=== PATIENT | male | born 1995 | race Caucasian/White ===

== ENCOUNTER 2025-04-19 13:46 | Emergency (ER) | payer OTHER, SELFPAY ==
--- NOTE | ~2025-04-19 | XR_ITS ---
XR foot RT min 3V Ordering provider: Linda Lozada PA-C History: . right foot pain, injury . Comparison: None. FINDINGS: BONES: No definite acute fracture or dislocation. JOINT SPACES: Normal. No tarsal coalition. SOFT TISSUES: Normal. IMPRESSION: No definite acute osseous abnormality of the right foot. Reviewed, dictated and finalized at location A.
[2025-04-19 13:48] VITALS: BP 135/77; PULSE 87; RESP 16; TEMP 36.5; O2SAT 99
--- NOTE | 2025-04-19 14:49 | ED_ITS ---
HPI - Extremity Injury (Lower) General Chief Complaint: Extremity Injury, Lower Stated Complaint: right foot injury Time Seen by Provider: 04/19/25 14:07 Source: patient Mode of arrival: ambulatory Limitations: no limitations History of Present Illness HPI Narrative: This is a 30-year-old male that presents to the emergency department for right foot pain. Reports he had a heavy object fall in the foot 2 days ago. Reports swelling, bruising and pain, largely to the great toe. Denies decreased range of motion or numbness. Related Data Allergies Allergy/AdvReac Type Severity Reaction Status Date / Time methylphenidate Allergy Mild Rash Unverified 04/19/25 13:52 Review of Systems Review of Systems: CONSTITUTIONAL: Denies fever MUSCULOSKELETAL: Reports joint pain, and myalgia. NEUROLOGIC: Denies numbness All systems reviewed & are unremarkable except as noted in HPI and below PMFSH Past Medical History Medical History (Updated 04/19/25 @ 15:25 by Linda Lozada PA-C) History of OCD (obsessive compulsive disorder) Exam Narrative: GENERAL: Well-appearing, well-nourished, and in no acute distress. HEAD: Normocephalic, atraumatic. EYES: EOMI. EXTREMITIES: Normal range of motion. No edema. Bruising to the right great toe. Normal DP pulse. Normal sensation SKIN: Warm, dry, no rash. NEURO: No focal deficits. Alert and oriented x3. PSYCH: Normal mood and affect Course Course Emergency Course: patient updated on his workup and agrees with plan of care Vital Signs Vital signs: Vital Signs Temperature 97.7 F 04/19/25 13:48 Pulse Rate 87 04/19/25 13:48 Respiratory Rate 16 04/19/25 13:48 Blood Pressure 135/77 04/19/25 13:48 Pulse Oximetry 99 04/19/25 13:48 Temperature 97.7 F 04/19/25 13:48 Pulse Rate 87 04/19/25 13:48 Respiratory Rate 16 04/19/25 13:48 Blood Pressure 135/77 04/19/25 13:48 Pulse Oximetry 99 04/19/25 13:48 Procedures Orthopedic Splinting/Casting Injury #1: Splinting/Casting Date: 04/19/25 Splinting/Casting Time: 15:34 Side: right Lower Extremity Injury Location: foot Lower Extremity Immobilizer: post-op shoe Pre-Procedure Neuro Vascular Exam: normal Post-Procedure Neuro Vascular Exam: normal Other Orthopedic Equipment: crutches MDM - Extremity Injury (Lower) MDM Narrative Medical decision making narrative: Patient presents to the emergency department for right foot injury. Reports dropping a heavy object on his foot 2 days ago. He is neurovascularly intact. Right foot x-ray without acute osseous abnormalities. Patient placed in postop shoe and given crutches. Instructed to rest, ice and take [id number] pain medication as needed. He is to follow up with primary provider. He was given warnings to return to the ER Differential Diagnosis Differential diagnosis: Likely fracture of toe and other (foot fracture, contusion) Imaging Data Radiologist's impression: ITS Impressions Foot X-Ray 04/19/25 15:09 IMPRESSION: No definite acute osseous abnormality of the right foot. Critical Care Time Critical Care Time Critical Care Time: No Discharge Plan Discharge Clinical Impression: Contusion of foot Qualifiers: Encounter type: initial encounter Laterality: right Qualified Code(s): S90.31XA - Contusion of right foot, initial encounter Patient Disposition: Home Condition: Stable Instructions: Contusion in Adults (ED) Additional Instructions: Return to the ER if you experience fever, redness and swelling of your extremity, numbness or any other symptoms that are concerning to you Wear post op shoe and use crutches. No weight on the affected leg until able to bear weight without pain. Ice and elevate extremity. Pain medication as needed and directed. Follow up with your doctor for further care. Patient Language: Green[place]ic Follow-up/Referrals: UNKNOWN,DOCTOR [Primary Care Provider] -
== END 2025-04-19 16:06 | disposition home or self-care (01) ==
PROVIDERS: Emergency Provider Physician Assistant
DX: S90.111A Contusion of right great toe without damage to nail, initial encounter (principal); W20.8XXA Other cause of strike by thrown, projected or falling object, initial encounter
CPT/HCPCS: 73630; 99283